=== PATIENT | male | born 1955 | race Caucasian/White ===

== ENCOUNTER 2017-05-15 12:36 | Observation (INO) | payer BC ==
[2017-05-15] MEDS ORDERED: Aspirin Low Dose CHEW TAB* 81 MG PO ONE (12:49)
[2017-05-15] MEDS ORDERED: Nitroglycerin TAB 0.4 MG* 0.4 MG TAB ONE (12:50)
[2017-05-15] MEDS: Nitroglycerin TAB 0.4 MG* 0.4 MG TAB SL PRN ×3 (12:52→13:06)
[2017-05-15] MEDS ORDERED: NS 0.9% 1000 ML* 1,000 ML IV ONE (13:13)
[2017-05-15] MEDS ORDERED: Ondansetron INJ* 2 MG/ML VIAL IV ONE (13:13)
[2017-05-15] MEDS ORDERED: Morphine INJ* 4 MG/ML 1 ML SYRINGE IV ONE (13:13)
[2017-05-15 13:32] LABS: Hematocrit 39 % (42-52); Mean Corpuscular HGB Conc 34 g/dl (31-36); Mean Corpuscular Hemoglobin 32 pg (27-31); Mean Corpuscular Volume 95 fL (80-94); Mean Platelet Volume 13 um3 (7.4-10.4); Red Blood Count 4.07 10^6/ul (4.0-5.4); Red Cell Distribution Width 15 % (10.5-15); White Blood Count 10.8 10^3/ul (3.5-10.8)
[2017-05-15 13:44] LABS: Albumin 3.9 g/dL (3.2-5.2); BUN/Creatinine Ratio 31.4 (8-20); Calcium 8.8 mg/dL (8.6-10.3); EGFR African American 48.2 (>60); EGFR Non-African American 37.5 (>60); Potassium 4.8 mmol/L (3.5-5.0); Total Bilirubin 0.3 mg/dL (0.2-1.0); Total Protein 6.9 g/dL (6.4-8.9)
[2017-05-15 13:45] LABS: Troponin I 0.01 ng/mL (<0.04)
--- NOTE | 2017-05-15 13:57 | RAD ---
INDICATION: Chest pain. COMPARISON: There are no prior studies available for comparison. TECHNIQUE: A portable view of the chest was obtained. FINDINGS: Cardiac and mediastinal contours appear to be within normal limits. The lungs are underinflated and clear. No pleural effusion is seen. IMPRESSION: NO EVIDENCE FOR ACUTE DISEASE.
[2017-05-15] MEDS ORDERED: Iodixanol* (CONTRAST) 320 MG/ML 100 ML SDV IV ONE (14:14)
--- NOTE | 2017-05-15 14:59 | RAD ---
INDICATION: Chest pain. Evaluate for aortic dissection.. COMPARISON: None TECHNIQUE: Axial source images were obtained from the thoracic inlet to the iliac crests following administration of [address] angiographic technique was utilized. Coronal and sagittal reconstructed images were acquired. CHEST FINDINGS: Neck/thyroid: The visualized neck to include the thyroid appear normal. Chest wall: There are no acute abnormalities of the bony thorax or chest wall. There is no supraclavicular, infraclavicular, or axillary lymphadenopathy. Lungs : There are no pulmonary parenchymal masses or infiltrates. There is no pneumothorax. There is mild coarsening of interstitium. There are no endobronchial lesions. Cardiomediastinal structures: The heart is normal in size. There is no pericardial effusion. There is no evidence of thoracic aortic aneurysm or dissection. There are intimal microcalcifications of mild thoracic aortic ectasia. There is no mediastinal or hilar adenopathy. The esophagus appears normal. Pleura : There are no pleural-based masses or effusions. Abdominal aorta there is mild fusiform dilatation of the infrarenal abdominal aorta with a maximum transverse dimension of 3.5 cm. There are mild intimal calcifications. The visceral branches arise satisfactorily. There is a 50% diameter stenosis of the origin of the celiac axis. There are single renal arteries bilaterally which appear widely patent. The common iliac vessels are mildly ectatic. At the origin of the right external iliac artery there is a 2.5 cm aneurysm. This is seen on the caudal most image and therefore is not imaged entirely. CT imaging of the pelvis could be obtained to evaluate the extent of this aneurysm Hepatic: Early arterial phase imaging demonstrates no specific CT abnormalities. Spleen: Early arterial phase imaging densities no abnormalities. Pancreas: There is no mass or pancreatic ductal dilatation. Adrenal glands: There is no adrenal mass. Renal: There is prompt perfusion bilaterally. The nephrographic phase images show a 0.7 cm right renal cyst Other: The visualized bowel is unremarkable. There is no free fluid or adenopathy within the visualized abdominal and intrapelvic regions. There is no acute bony change. IMPRESSION: 1. No evidence of aortic dissection 2. Mild fusiform dilatation infrarenal abdominal aorta to 3.5 cm. 3. 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 Imaging is incomplete as this aneurysm is seen only on the caudal most images. This could be further evaluated with additional CT imaging through the pelvis.
[2017-05-15] MEDS ORDERED: Acetaminophen TAB* 325 MG PO PRN (15:36)
[2017-05-15] MEDS ORDERED: Morphine INJ* 2 MG/ML 1 ML SYRINGE IV PRN (15:36)
[2017-05-15] MEDS ORDERED: PROCHLORPERAZINE INJ 5 MG/ML 2 ML VIAL IV PRN (15:36)
--- NOTE | 2017-05-15 15:50 | RAD ---
INDICATION: Assess partially visualized RIGHT common iliac artery aneurysm on CT angiogram of the abdominal aorta performed today. COMPARISON: May 15, 2017 CT angiogram of the thoracic and abdominal aorta. TECHNIQUE: Multidetector CT images were obtained from the iliac crests to the ischial tuberosities. Evaluation of the viscera is limited without IV contrast. Multiplanar reformation. REPORT: Pyelographic phase contrast at the renal collecting systems, ureters, and urinary bladder from the CT angiogram performed earlier the same date. 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 Top normal 1.5 cm diameter LEFT common iliac artery. Diffuse calcific atherosclerotic plaque. Negative for retroperitoneal hematoma. Severe colonic diverticulosis. Negative for stigmata of acute diverticulitis. Negative for ascites, free air, or significant hernias within the [id number]. 2 cm simple cortical cyst at the midpole of the RIGHT kidney. Negative for lymphadenopathy within the [id number]. Negative for suspicious osseous lesions. 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 Top normal 1.5 cm diameter LEFT common iliac artery. Diffuse calcific atherosclerotic plaque.
[2017-05-15] MEDS: NS 0.9% 1000 ML* 1,000 ML IV SCH (18:04)
[2017-05-15 19:54] LABS: Benzodiazepine Urine Screen None Detected (None Detect)
[2017-05-15] MEDS: Mometasone/Formoter 200/5 MDI INH SCH (20:59)
[2017-05-15] MEDS: Heparin VIAL(*) 5000 UNITS/ML VIAL (FIVE THOUSAND) SUBCUT SCH (22:21)
--- NOTE | 2017-05-16 00:42 | HP ---
CC: Dr. Abril Kidd at [facility] in [place], phone number is [phone] * HISTORY AND PHYSICAL: DATE OF ADMISSION: 05/15/17 TIME OF EVALUATION: 3:15 p.m. PRIMARY CARE PROVIDER: Dr. Abril Kidd at [facility] in [place], phone number is [phone] CHIEF COMPLAINT: Chest pain. HISTORY OF PRESENT ILLNESS: Mr. Beck is a 61-year-old male with a past medical history of hypertension, COPD, tobacco abuse, who presented to the emergency room brought in by EMS with complaints of chest pain. The patient states he woke up on his usual state of health and he drove from [place] where he lived to work in [place]. 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 He denies any symptoms preceding. He had no chest pain, no palpitations, no lightheadedness. He does not remember how it happened. As per EMS documentation, some colleagues stated that he had slurred speech when he regained consciousness and he was unconscious for 1 minute. When he regained consciousness, he was complaining of left-sided chest pain that he rates as a 7/10 with no radiation. He states that 2 weeks ago he had a near syncopal episode while he was working doing the same thing, flagging construction site on the roadside, but at that time, he just sat down and the symptoms subsided. He was able to drive back home, but did not seek medical attention. He denied fever, chills, palpitations, shortness of breath, or any other complaints. PAST MEDICAL HISTORY: 1. Hypertension. 2. COPD. 3. Tobacco abuse. MEDICATIONS: 1. Amlodipine 5 mg p.o. daily. 2. Advair 250/50 one puff inhaled b.i.d. 3. Lisinopril 40 mg p.o. daily. 4. Spiriva 1 capsule inhaled daily. ALLERGIES: No known drug allergies. FAMILY HISTORY: Both his father and mother had diabetes and of heart disease. SOCIAL HISTORY: The patient has been a smoker since age 14, two packs per day. He states that he drinks 2 or 3 times a week, usually 2 beers. He denies any recent drug use. States that he experimented marijuana, but denies using it recently. Surrogate decision maker is his , but he does not have her information available at this time. PHYSICAL EXAMINATION GENERAL: The patient is a pleasant, middle-aged male sitting up on the ED stretcher in no acute distress. VITAL SIGNS: Temperature 98.7, heart rate is 68, respiratory rate is 19, oxygen saturation is 100% on room air, blood pressure is 137/77. HEENT: Pupils are equal. Moist mucous membranes. CHEST: Breath sounds present bilaterally with no added sounds. The patient has pain on palpation of the left side of his chest. CVS: Normal S1, S2. Regular rate and rhythm. ABDOMEN: Soft, nontender, nondistended. Bowel sounds are present. EXTREMITIES: No edema. NEUROLOGIC: He is alert and oriented x3. Able to move all 4 extremities. LABORATORY AND IMAGING DATA: The patient had a CBC that showed a WBC of 10.8, hemoglobin of 13, hematocrit of 39, platelets of 158, and 58% neutrophils. Chemistries showed a sodium of 134, potassium 4.8, chloride of 103, bicarb of 25 , BUN of 58, creatinine of 1.8, glucose of 147, lactic acid of 1.7. LFTs were normal and first troponin is 0.01. First EKG done on 05/15/17 at 12:45 showed sinus rhythm at 78 beats per minute with no ST-T changes and a repeat EKG done at 1525 was unchanged from prior. CTA of the chest and abdomen showed no evidence of aortic dissection. Mild fusiform dilatation of the infrarenal abdominal aorta up to 3.5 cm, 2.5 cm aneurysm at the origin of the right external iliac artery. CT of the pelvis confirms the fusiform aneurysm of the right common iliac artery measuring up to 2.5 cm and extending over approximately 3.5 cephalocaudal. ASSESSMENT AND PLAN: Mr. Beck is a 61-year-old male with past medical history of hypertension, chronic obstructive pulmonary disease, tobacco abuse who presented to the emergency room after a syncopal episode, now with complaints of chest pain. 1. Chest pain: Rule out acute coronary syndrome/syncope. The patient states although he had no prodrome prior to passing out, he does have elevation of his BUN and creatinine that could suggest dehydration. He will be observed for arrhythmia on telemetry. We are going to check an echocardiogram and serial troponins to rule out acute coronary syndrome. If it is ruled out, he will have an exercise Myoview stress test in the morning. We are also going to check lipid profile to assess his risk factors. I believe his chest pain now has a component of musculoskeletal pain from his syncopal episode and falling on the road. His CTA of the chest does not mention any fractures. The report states there are no acute abnormalities of the bony thorax or chest wall. He will receive Tylenol and morphine as needed for pain control. We will avoid NSAIDs for now due to his elevated creatinine. 2. Possible acute kidney injury: It is unclear if the patient has a prior history of chronic kidney disease or if this BUN and creatinine elevation represents acute renal failure. I have requested records from his PCP' office. He is going to receive IV hydration and I will repeat his renal function in the morning. 3. Hypertension is controlled. I am going to continue his amlodipine and hold his lisinopril for now in the setting of renal failure. 4. Chronic obstructive pulmonary disease. It is stable at this time. We will continue his bronchodilators. 5. Code status is full. 6. DVT prophylaxis: The patient has a score of 2 on a DVT Prophylaxis Risk Assessment Guide. He will be started on subcutaneous heparin. TIME SPENT: Approximately 60 minutes were spent with patient interview, medical record review, physical examination to complete this admission, more than half of this time was spent [id number] with the patient and coordination of care. [id number]/[facility] #: [id number] RENETTA
[2017-05-16] MEDS: NS 0.9% 1000 ML* 1,000 ML IV SCH (02:23)
[2017-05-16] MEDS: Heparin VIAL(*) 5000 UNITS/ML VIAL (FIVE THOUSAND) SUBCUT SCH (06:13)
[2017-05-16 06:25] LABS: Hematocrit 40 % (42-52); Hemoglobin 13.3 g/dl (14.0-18.0); Mean Corpuscular HGB Conc 33 g/dl (31-36); Mean Corpuscular Hemoglobin 32 pg (27-31); Mean Corpuscular Volume 95 fL (80-94); Mean Platelet Volume 13 um3 (7.4-10.4); Red Blood Count 4.21 10^6/ul (4.0-5.4); Red Cell Distribution Width 15 % (10.5-15); White Blood Count 11.1 10^3/ul (3.5-10.8)
[2017-05-16 06:38] LABS: BUN/Creatinine Ratio 28.3 (8-20); Calcium 8.7 mg/dL (8.6-10.3); EGFR African American 99.2 (>60); EGFR Non-African American 77.1 (>60)
[2017-05-16] MEDS: Mometasone/Formoter 200/5 MDI INH SCH (08:13)
[2017-05-16] MEDS ORDERED: Spiriva Inhaler DEVICE* 1 EACH DEVICE INH ONE (09:00)
[2017-05-16] MEDS ORDERED: Tiotropium CAP.INH* CAP.INH/18 MCG INH SCH (09:00)
[2017-05-16] MEDS ORDERED: Lisinopril TAB* 10 MG PO SCH (09:00)
[2017-05-16] MEDS ORDERED: Aspirin EC Low Dose* 81 MG TAB.EC PO SCH (09:00)
[2017-05-16] MEDS ORDERED: amLODIPine TAB* 5 MG PO SCH (09:00)
[2017-05-16 10:38] VITALS: BP 140/70
[2017-05-16] MEDS ORDERED: Aminophylline IV* 25 MG/ML 10 ML VIAL ONE (12:09)
[2017-05-16] MEDS ORDERED: Regadenoson* 0.4 MG/5 ML SYRINGE ONE (12:09)
--- NOTE | 2017-05-16 12:11 | ECHO ---
Patient: ramon ghosh [facility] Rec#: [id number] : 1955 Date: 05/16/2017 Age: 61y Height: 180.34 cm / 71.0 in Weight: 92.99 kg / 204.9 lbs Sex: M BSA: 2.13 Room#: 451 Admit Date#: 05/15/2017 Type: Inpatient Referring: Flor Alamo MD Reading: Lucho Mauro MD District Manager [employer] Sales: Sujatha Allen RD,RDMS Transthoracic Echocardiogram Indication: Syncope BP: 123/55 HR: 75 Rhythm: NSR Findings History: COPD, HTN, smoker Technical Comments: The study is technically limited due to poor parasternal windows. Completed 0945 Left Ventricle: The left ventricular chamber size is normal. Mild concentric left ventricular hypertrophy is observed. There is a focal wall motion abnormality present. There is mildly decreased left ventricular systolic function. The estimated ejection fraction is 45-50%. There is an E to A reversal in the mitral valve flow pattern suggestive of diastolic dysfunction. The apical inferior wall segment is hypokinetic (score 2). Overall wallmotion score index is 2.00 Left Atrium: The left atrial chamber size is normal. Right Ventricle: The right ventricular chamber size and systolic function are within normal limits. Right Atrium: The right atrial cavity size is normal. Aortic Valve: The aortic valve structure is not well visualized. There is no evidence of aortic valve thickening. There is a trace of aortic regurgitation. There is no evidence of aortic stenosis. Mitral Valve: The mitral valve leaflets are mildly thickened. There is a trace of mitral regurgitation. There is no evidence of mitral stenosis. Tricuspid Valve: The tricuspid valve leaflets are normal. There is trace tricuspid regurgitation. Pulmonic Valve: The pulmonic valve structure is not well visualized. Pericardium: There is no significant pericardial effusion. Aorta: There is borderline dilatation of the ascending aorta. There is no dilatation of the aortic arch. There is no dilation of the aortic root. Pulmonary Artery: The main pulmonary artery is not well visualized. Venous: The inferior vena cava is dilated. There is a greater than 50% respiratory change in the inferior vena cava dimension. Conclusions Mild concentric left ventricular hypertrophy is observed. There is mildly decreased left ventricular systolic function. The estimated ejection fraction is 45-50%. The apical inferior wall segment is hypokinetic (score 2). The right ventricular chamber size and systolic function are within normal limits. There is a trace of aortic regurgitation. There is a trace of mitral regurgitation. There is trace tricuspid regurgitation. There is no significant pericardial effusion. Measurements Name Value Normal Range RVDdMajor (2D) 3.1 cm (2.2 - 4.4) RAd ISD 4CH 4.7 cm (3.4 - 4.9) RA (A4C)W 4.5 cm (2.9 - 4.6) IVSd (2D) 1.2 cm (0.6 - 1) LVPWd (2D) 1.2 cm (0.6 - 1) LVIDd (2D) 3.9 cm (3.6 - 5.4) LVIDs (2D) 2.7 cm - LV FS (2D) 31 % (25 - 45) Aortic Annulus 2 cm (1.4 - 2.6) Ao root diameter (2D) 3.5 cm (2.1 - 3.5) Ascending Ao 3.5 cm (2.1 - 3.4) Aortic arch 3.1 cm (1.8 - 3.4) LA dimension (AP) 2D 3.6 cm (2.3 - 3.8) LAd ISD 4CH 4.3 cm (2.9 - 5.3) LA ISD 4CH W 4.2 cm (2.5 - 4.5) Name Value Normal Range LA ESV SP 4CH (A/L) 36.39 ml - LA ESV SP 2CH (A/L) 55.78 ml - LA ESV BP (A/L) 48.37 ml - LA ESV BP (A/L) index 23 ml/m2 - LA ESV SP 4CH (MOD) 32.14 ml - LA ESV SP 2CH (MOD) 50.48 ml - Name Value Normal Range MV E-wave Vmax 0.8 m/sec - MV deceleration time 214 msec - MV A-wave Vmax 0.9 m/sec - MV E:A ratio 0.9 ratio - LV septal e' Vmax 0.11 m/sec - LV E:e' septal ratio 7.3 ratio - Name Value Normal Range AV Vmax 1.3 m/sec - AV VTI 25 cm - AV peak gradient 7 mmHg - AV mean gradient 3.8 mmHg - LVOT Vmax 1.3 m/sec - LVOT VTI 23.5 cm - LVOT peak gradient 7 mmHg - LVOT mean gradient 2.5 mmHg - ANTHONY Vmax 0.7 m/sec - Name Value Normal Range TR Vmax 2.4 m/sec - TR peak gradient 23 mmHg - RAP 8 mmHg - RVSP 31 mmHg - IVC diameter 2.2 cm - Name Value Normal Range PV Vmax 1.2 m/sec - PV peak gradient 6 mmHg - Wallmotion BAS Not Seen BA Not Seen BAL Not Seen MYNOR Not Seen BI Not Seen BIS Not Seen MAS Not Seen MA Not Seen MAL Not Seen MIL Not Seen NY Not Seen MIS Not Seen Not Seen AA Not Seen AL Not Seen AI Hypokinetic APEX Hypokinetic
--- NOTE | 2017-05-16 12:25 | RAD ---
Edited for charges. INDICATION: Chest pain. COMPARISON: There are no prior studies available for comparison. Technique: A single day myocardial perfusion stress study was performed. Initially the resting study was performed. The patient was given an intravenous injection of 10.9 mCi of technetium 99m tetrofosmin and and the heart was imaged in multiple projections. The patient returned later in the day and under the direction of Dr. Steiner, the patient was given intervenous injection of Lexiscan. Subsequently the patient was given intravenous injection of 25.4 mCi of technetium 99m tetrofosmin and the heart was imaged in multiple projections. Images were reconstructed in the axial, sagittal and coronal planes and in a 3- D format. FINDINGS: There appears to be hypokinesis within the septum. The left ventricular ejection fraction is calculated to be 66%. Review of the images demonstrates decreased activity in the inferior wall on both the post pharmacologic stress and resting images which is no longer present on the attenuation corrected images and therefore most consistent with artifact. There is a mild area of decreased activity present in the apex on the post pharmacologic stress images which appears normal on the resting set of images suggestive of a small area of ischemia. IMPRESSION: FINDINGS SUGGESTIVE OF A SMALL AREA OF ISCHEMIA IN THE CARDIAC APEX. ASSESSMENT: Low risk. Based on imaging criteria from ACC/AHA 2002 Guideline Update for the Management of Patients With Chronic Stable Angina Table 23. Noninvasive Risk Stratification. MTDD
--- NOTE | 2017-05-16 12:50 | PN ---
Subjective Date of Service: 05/16/17 Interval History: Patient seen and examined at bedside. He denies any episodes of dizziness, chest pain, shortness of breath, n/v. He states he is bored. He states that he drinks a few bottles of water a day. Discussed the need to take breaks when possible and to perhaps hydrate more and avoid dehydrating drinks, such as excessive caffeine. Patient verbalized understanding. Telemetry: Sinus rhythm 60s-70s Family History: Unchanged from Admission Social History: Unchanged from Admission Past Medical History: Unchanged from Admission Objective Active Medications: Acetaminophen (Tylenol Tab*) 650 mg PO Q6H PRN PRN Reason: pain/fever Amlodipine Besylate (Norvasc Tab*) 5 mg PO DAILY [facility] Aspirin (Aspirin Ec Low Dose*) 81 mg PO DAILY [facility] Heparin Sodium (Porcine) (Heparin Vial(*)) 5,000 units SUBCUT Q8HR [facility] Last Admin: 05/16/17 06:13 Dose: 5,000 units Sodium Chloride (Ns 0.9% 1000 Ml*) 1,000 mls @ 125 mls/hr IV PER RATE [facility] Last Admin: 05/16/17 02:23 Dose: 125 mls/hr Mometasone Furoate/Formoterol Fumar (Dulera 200/5 Mdi*) 2 puff INH BID [facility] Last Admin: 05/16/17 08:13 Dose: 2 puff Morphine Sulfate (Morphine Inj (Syringe)*) 2 mg IV Q4H PRN PRN Reason: PAIN Nitroglycerin (Nitroglycerin Tab 0.4 Mg*) 0.4 mg SL Q5M PRN PRN Reason: ANGINA Last Admin: 05/15/17 13:06 Dose: 0.4 mg Prochlorperazine Edisylate (Compazine Inj*) 5 mg IV Q6H PRN PRN Reason: NAUSEA/VOMITING Tiotropium [place] (Spiriva Cap.Inh*) 1 cap INH DAILY [facility] Last Admin: 05/16/17 08:13 Dose: 1 cap Vital Signs 05/15/17 05/15/17 05/15/17 15:38 16:00 16:09 Temperature Pulse Rate 70 79 65 Respiratory 18 23 17 Rate Blood Pressure 131/78 (mmHg) O2 Sat by Pulse 100 98 98 Oximetry 05/15/17 05/15/17 05/15/17 16:30 16:31 16:44 Temperature Pulse Rate 66 65 68 Respiratory 18 18 Rate Blood Pressure 117/58 (mmHg) O2 Sat by Pulse 96 96 98 Oximetry 05/15/17 05/15/17 05/15/17 17:02 19:50 20:59 Temperature 98.1 F 98.3 F Pulse Rate 61 66 61 Respiratory 16 18 16 Rate Blood Pressure 124/57 131/61 (mmHg) O2 Sat by Pulse 100 97 100 Oximetry 05/16/17 05/16/17 05/16/17 00:03 03:48 07:26 Temperature 98.6 F 98.8 F 98.5 F Pulse Rate 69 64 66 Respiratory 20 20 16 Rate Blood Pressure 122/70 123/55 135/60 (mmHg) O2 Sat by Pulse 97 93 93 Oximetry 05/16/17 05/16/17 05/16/17 07:28 07:29 08:15 Temperature Pulse Rate 69 79 68 Respiratory 12 Rate Blood Pressure 146/80 140/70 (mmHg) O2 Sat by Pulse 95 Oximetry Oxygen Devices in Use Now: None Appearance: Middle aged male, lying in bed, NAD Eyes: No Scleral Icterus, PERRLA Ears/Nose/Mouth/Throat: Mucous Membranes Moist Neck: NL Appearance and Movements; NL JVP Respiratory: Symmetrical Chest Expansion and Respiratory Effort, Clear to Auscultation, - - mild tenderness with palpation to left chest Cardiovascular: NL Sounds; No Murmurs; No JVD, RRR Abdominal: NL Sounds; No Tenderness; No Distention Extremities: No Edema Neurological: Alert and Oriented x 3 Lines/Tubes/Other Access: Clean, Dry and Intact Peripheral IV Nutrition: Taking PO's Result Diagrams: 05/16/17 06:03 05/16/17 06:03 Assess/Plan/Problems-Billing Assessment: Mr. Beck is a 61 yo male with a PMH of HTN, COPD, and tobacco abuse who presented to the ED on 05/15/17 following a syncopal episode and subsequent chest pain. - Patient Problems (1) Chest pain Code(s): R07.9 - CHEST PAIN, UNSPECIFIED Comment: Denies any further chest pain Troponins negative No arrhythmia noted on telemetry Chest wall pain s/p fall now improved Nuclear stress test with findings suggestive of a small area of ischemia in the cardiac apex. Echocardiogram shows mild LVH, EF 45-50%, apical inferior wall segment is hypokinetic. Nuclear stress and echocardiogram discussed with Dr. Mauro, who reported the hypokinesis on the echo is minor and that no catheterization is indicated at this time. Recommends patient to follow-up with PCP. (2) Syncope Code(s): R55 - SYNCOPE AND COLLAPSE Comment: Patient does not recall any prodrome but labs indicate patient was likely dehydrated. Workup negative for ACS, no arrhythmias seen. Outpatient f/u with PCP. 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 (7) DVT prophylaxis Comment: SQ heparin Status and Disposition: OBV admit. D/c to home.
--- NOTE | 2017-05-17 16:11 | DS ---
CC: Dr. Abril Kidd * MEDICINE DISCHARGE SUMMARY: DATE OF ADMISSION: 05/15/17 DATE OF DISCHARGE: 05/16/17 PRIMARY CARE PROVIDER: Dr. Abril Kidd at [facility] in [place]. PROVIDER: Sissy Howard NP ATTENDING PHYSICIAN: Robbie Wilson MD* (as dictated by Sissy Howard NP). PRIMARY DISCHARGE DIAGNOSES: 1. Chest pain. 2. Syncope. 3. Acute kidney injury. SECONDARY DISCHARGE DIAGNOSES: 1. Chronic obstructive pulmonary disease. 2. Hypertension. 3. Tobacco abuse. MEDICATIONS AT DISCHARGE: 1. Amlodipine 5 mg daily. 2. Spiriva 1 capsule inhaled daily. 3. Advair 250/50 one puff inhaled b.i.d. 4. Lisinopril 40 mg daily. DIAGNOSTIC TESTING DURING THIS ADMISSION: 1. CTA of the chest and abdomen. Impression: No evidence of aortic dissection. 2. Mild fusiform dilatation of infrarenal abdominal aorta to 3.5 cm. 3. 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 Imaging is incomplete as his aneurysm is seen only on the one caudal most image. This could be evaluated with additional CT imaging of the pelvis. 4. Chest x-ray. No evidence for acute disease. 5. CT of the pelvis. 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 Top normal 1.5 cm diameter left common iliac artery. Diffuse calcific atherosclerotic plaque. 6. Nuclear medicine scan. Impression: Finding suggestive of a small area of ischemia in the cardiac apex, assessed as low risk. Findings, there appears to be hypokinesis within the septum. The left ventricular ejection fraction is calculated to be 66%. Review of the images demonstrates decreased activity in the inferior wall on both the post pharmacologic stress and resting images, which is no longer present on the attenuation corrected images and, therefore, most consistent with artifact. There is a mild area of decreased activity present in the apex on the post pharmacologic stress images, which appears normal on the resting set of images, suggestive of a small area of ischemia. 7. Transthoracic echocardiogram. Conclusions: Mild concentric left ventricular hypertrophy is observed. There is mildly decreased left ventricular systolic function. The estimated ejection fraction is 45% to 50%. The apical inferior wall segment is hypokinetic. The right ventricular chamber size and systolic function are within normal limits. There is a trace of aortic regurgitation. There is a trace of mitral regurgitation. There is a trace tricuspid regurgitation. There is no significant pericardial effusion. HOSPITAL COURSE OF STAY: For full details, please refer to the H and P provided by Dr. Chávez. In summary, Mr. 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 He denies any prodrome or preceding symptoms. He does not remember what had happened. Per EMS, some of his coworkers had reported slurred speech when he regained consciousness and he was unconscious for about a minute. When he regained consciousness, he complained of left-sided chest pain that he rates as a 7/10 with no radiation. He also reports a similar near syncopal episode approximately 2 weeks ago, but he was able to sit down and symptoms subsided. He did not seek medical attention for this episode. The patient was admitted for further evaluation and monitoring on telemetry. No arrhythmias were seen on telemetry. Patient did undergo echocardiogram and stress test as stated above. Given the findings of the echo and stress test, I did discuss these with Cardiology to see if the patient would benefit from a cardiac catheterization, cardiology consult. It was felt that the spot on the echocardiogram of hypokinesis was very minor and small and that the finding on the nuclear medicine scan was low risk and not indicative of interventional cardiology at this time. The patient was advised to follow up with his PCP. The patient's renal function upon admission did show concern for acute kidney injury. He had an elevated BUN of 58 with a creatinine of 1.85. His BUN did improve to 28 and his creatinine was down to 0.99, and we did continue with fluids up until discharge. The patient was advised to continue taking plenty of fluids and advised to try to drink as much fluid as possible while out in the sun working construction. In regard to the patient's lipid profile, the patient appears well controlled with triglycerides at 142, cholesterol 115, LDL 58, and HDL 29. Education provided on continuing heart-healthy diet. Patient's hypertension was well controlled here and he was advised to continue with medications. COPD was stable and well controlled here. Patient can continue with his current regimen. In regards to his tobacco abuse, patient was advised to quit smoking as this would provide better lung function as well as cardiac benefit. CONCERNS AT DISCHARGE: Mr. Beck was discharged to home under the care of his on 05/16/17. He is to follow up with his PCP within 1 week. ACTIVITY: As tolerated. DIET: Heart-healthy diet. CONDITION: Stable. OUTPATIENT FOLLOWUP NEEDS: The patient is to follow up with his PCP. He has been advised to stay well hydrated. He had a mild leukocytosis of 11,000 today , which is likely a leukemoid reaction following a syncopal episode. The patient was given a lab requisition to have a followup CBC. DISPOSITION: To home. TIME SPENT: Time spent on this discharge was approximately 45 minutes. Again, this is only a brief summary of the patient's hospital course of stay. For full details, please refer to the full medical record. If you have any further questions or further assistance, please feel free to contact me at [phone]. SISSY HOWARD NP [id number]/[facility] #: [id number] [place]
== END 2017-05-16 15:47 | disposition home or self-care (01) ==
LOC: ED 12:36 → MEDTELE 15:18
PROVIDERS: ADMIT Internal Medicine; ATTEND Internal Medicine
DX: R07.9 Chest pain, unspecified (principal); R55 Syncope and collapse; N17.9 Acute kidney failure, unspecified; J44.9 Chronic obstructive pulmonary disease, unspecified; I72.3 Aneurysm of iliac artery; I51.7 Cardiomegaly; Z79.899 Other long term (current) drug therapy; I10 Essential (primary) hypertension; F17.210 Nicotine dependence, cigarettes, uncomplicated
CPT/HCPCS: 36415; 71010; 71275; 72192; 74175; 78452; 80048; 80053; 80061; 80307; 83605; 84484; 85025; 93005; 93017; 93306; 94640; 96361; 96372; 96374; 96375; 99285; A9270-GY; A9502; G0378; J0280; J1644; J2270; J2405; J2785; Q9967